=== PATIENT | female | born 1950 | race Caucasian/White ===

== ENCOUNTER 2022-02-25 08:42 | Outpatient (CLI) | payer MEDICARE, BC, SELFPAY ==
[2022-02-25 11:38] LABS: Vitamin D 25 Hydroxy* 51 ng/mL (30-80)
[2022-02-25 11:53] LABS: Albumin* 4.9 g/dL (3.3-5.0); Chloride* 104 mmol/L (96-114); Sodium* 140 mmol/L (135-149)
[2022-02-25 11:54] LABS: Potassium* 4.4 mmol/L (3.6-5.1)
[2022-02-25 11:56] LABS: Alanine Aminotransferase* 23 U/L (4-35); Alkaline Phosphatase* 84 U/L (40-150); Aspartate Amino Transferase* 28 U/L (12-35); Bilirubin Total* 0.4 mg/dL (0.1-1.5); Blood Urea Nitrogen* 22 mg/dL (7-30); Carbon Dioxide* 25 mmol/L (20-32); Cholesterol* 255 mg/dL (90-199); Creatinine* 0.7 mg/dL (0.5-1.5); Estimated Glomerular Filt Rate 93 ml/min; Glucose* 100 mg/dL (60-115); Total Protein* 7.6 g/dL (6.0-8.3); Triglycerides* 81 mg/dL (40-149)
[2022-02-25 11:57] LABS: Calcium* 9.4 mg/dL (8.4-10.6); HDL Cholesterol* 72 mg/dL (>=50); LDL Cholesterol Calculated 167 mg/dL (<100)
== END 2022-02-25 08:43 | disposition home or self-care (01) ==
PROVIDERS: PCP Family Medicine; Visit Provider Family Medicine
DX: Z00.00 Encounter for general adult medical examination without abnormal findings (principal); M81.0 Age-related osteoporosis without current pathological fracture; R53.83 Other fatigue; E78.5 Hyperlipidemia, unspecified; L40.9 Psoriasis, unspecified; Z13.6 Encounter for screening for cardiovascular disorders
CPT/HCPCS: 80053; 80061; 82306; 84443

== ENCOUNTER 2022-04-30 14:23 | Outpatient (CLI) | payer MEDICARE, BC, SELFPAY ==
--- NOTE | 2022-04-30 14:40 | CRLHL7_ITS ---
For Patients: As a result of the Century Cures Act, medical imaging exams and procedure reports are released immediately into your electronic medical record. You may view this report before your referring provider. If you have questions, please contact your health care provider. BILATERAL DIGITAL SCREENING MAMMOGRAM WITH COMPUTER-AIDED DETECTION WITH TOMOSYNTHESIS CLINICAL HISTORY: Routine screening exam. COMPARISON: 02/21/2021, 12/15/2019. TECHNIQUE: Digital mammogram in CC and MLO projections including computer-aided detection (CAD) and tomosynthesis. BREAST COMPOSITION: There are scattered areas of fibroglandular density. FINDINGS: RIGHT Breast: Focal asymmetric density within the lower-outer quadrant 2 cm from the nipple. LEFT Breast: No suspicious findings. IMPRESSION: RIGHT breast asymmetry/mass. RECOMMENDATIONS: Additional mammographic views of the RIGHT breast including 3D spot-compression CC/MLO. RIGHT breast ultrasound may also be required. The [facility] will contact the patient for follow-up. BI-RADS Category 0: Incomplete: Need Additional Imaging Evaluation and/or Prior Mammograms for Comparison Dictated by Josh Ramirez MD @ 05/01/2022 8:53:52 AM PT/Dictated by: Josh Ramirez MD @ 05/01/2022 8:54:00 AM (Electronically Signed)
== END 2022-04-30 14:24 | disposition home or self-care (01) ==
LOC: MAMMO 14:26
PROVIDERS: PCP Family Medicine; Visit Provider Family Medicine
DX: Z12.31 Encounter for screening mammogram for malignant neoplasm of breast (principal); N63.10 Unspecified lump in the right breast, unspecified quadrant
CPT/HCPCS: 77063; 77067

== ENCOUNTER 2022-05-04 10:36 | Outpatient (CLI) | payer MEDICARE, BC, SELFPAY ==
--- NOTE | 2022-05-04 10:45 | CRLHL7_ITS ---
For Patients: As a result of the Cures Act, medical imaging exams and procedure reports are released immediately into your electronic medical record. You may view this report before your referring provider. If you have questions, please contact your health care provider. RIGHT DIAGNOSTIC DIGITAL MAMMOGRAM WITH COMPUTER-AIDED DETECTION AND TOMOSYNTHESIS RIGHT BREAST ULTRASOUND CLINICAL HISTORY: RIGHT breast mass/asymmetry. COMPARISON: 04/30/2022, 02/21/2021, 12/15/2019, 11/04/2018. TECHNIQUE: Digital RIGHT mammogram in two projections with of computer-aided detection and tomosynthesis Real-time ultrasound imaging of RIGHT breast with imaging documentation. BREAST COMPOSITION: The breast is heterogeneously dense, which may obscure small masses. FINDINGS: 3D spot-compression CC/MLO RIGHT breast mammograms submitted. Decreased conspicuity of the previously noted asymmetric density. No underlying suspicious mass or architectural distortion. No adenopathy or suspicious calcifications. Targeted RIGHT breast ultrasound performed in the lower outer quadrant. At 7 o`clock 2 cm from the nipple, an island of normal dense tissue is present. Incidental subcutaneous lipoma at 7 o`clock 1 cm from the nipple. No evidence of malignancy. IMPRESSION: No evidence of malignancy. Negative additional RIGHT breast mammograms and negative targeted RIGHT breast ultrasound. RECOMMENDATIONS: Annual bilateral screening mammography. Results and recommendations discussed with the patient. A lay language report of this examination will be provided to the patient. BI-RADS Category 2. Benign Dictated by Josh Ramirez MD @ 05/04/2022 12:15:18 PM CRL:ilia RD/Dictated by: Josh Ramirez MD @ 05/04/2022 12:15:00 PM (Electronically Signed)
--- NOTE | 2022-05-04 11:15 | CRLHL7_ITS ---
For Patients: As a result of the Cures Act, medical imaging exams and procedure reports are released immediately into your electronic medical record. You may view this report before your referring provider. If you have questions, please contact your health care provider. PLEASE SEE RIGHT DIAGNOSTIC MAMMOGRAM OF SAME DAY FOR COMBINED REPORT. CRL:ilia RD/Dictated by: Josh Ramirez MD @ 05/04/2022 12:15:00 PM (Electronically Signed)
== END 2022-05-04 10:37 | disposition home or self-care (01) ==
LOC: MAMMO 10:37
PROVIDERS: PCP Family Medicine; Visit Provider Family Medicine
DX: N63.10 Unspecified lump in the right breast, unspecified quadrant (principal); R92.8 Other abnormal and inconclusive findings on diagnostic imaging of breast
CPT/HCPCS: 76642; 77065; G0279

== ENCOUNTER 2022-09-29 08:05 | Outpatient (CLI) | payer MEDICARE, BC, SELFPAY | END 2022-09-29 08:06 | disposition home or self-care (01) | LOC: NFLDREF 09-30 18:15 | PROVIDERS: PCP Family Medicine; Referring Provider Family Medicine; Visit Provider Family Medicine | DX: E78.5 Hyperlipidemia, unspecified (principal); Z79.899 Other long term (current) drug therapy | CPT/HCPCS: 80061; 80076; 82550 ==

== ENCOUNTER 2023-03-22 09:48 | Outpatient (CLI) | payer MEDICARE, BC, SELFPAY | END 2023-03-22 09:49 | disposition home or self-care (01) | LOC: NFLDREF 03-23 17:09 | PROVIDERS: PCP Family Medicine; Referring Provider Family Medicine; Visit Provider Family Medicine | DX: E78.5 Hyperlipidemia, unspecified (principal); M81.0 Age-related osteoporosis without current pathological fracture; Z13.9 Encounter for screening, unspecified | CPT/HCPCS: 80053; 80061; 82306 ==

== ENCOUNTER 2023-05-18 17:28 | Outpatient (CLI) | payer MEDICARE, BC, SELFPAY ==
--- NOTE | 2023-05-18 17:40 | CRLHL7_ITS ---
For Patients: As a result of the Century Cures Act, medical imaging exams and procedure reports are released immediately into your electronic medical record. You may view this report before your referring provider. If you have questions, please contact your health care provider. BILATERAL SCREENING MAMMOGRAM WITH COMPUTER-AIDED DETECTION AND TOMOSYNTHESIS TECHNIQUE: CC and MLO views were obtained. These mammographic images have been obtained using full-field digital technique. These mammographic images were interpreted with the benefit of computer-aided detection. Breast Tomosynthesis was used in this interpretation. COMPARISON FILM: 05/04/22, 04/30/22, 02/21/21. FINDINGS: The breasts are heterogeneously dense, which may obscure small masses IMPRESSION: There is no radiographic evidence for malignancy. ASSESSMENT: BI-RADS Category 1: Negative RECOMMENDATION: Routine screening mammogram in 1 year. A lay language report of this examination will be provided to the patient. Josh Ramirez M.D. Diagnostic Radiologist [email or web address] Transcribed: 6:42 p.zakiya devine/Dictated by: Josh Ramirez MD @ 05/19/2023 12:52:00 PM (Electronically Signed)
== END 2023-05-18 17:29 | disposition home or self-care (01) ==
LOC: MAMMO 17:29
PROVIDERS: PCP Family Medicine; Visit Provider Family Medicine
DX: Z12.31 Encounter for screening mammogram for malignant neoplasm of breast (principal); R92.2 Inconclusive mammogram
CPT/HCPCS: 77063; 77067

== ENCOUNTER 2023-06-17 14:37 | Outpatient (CLI) | payer MEDICARE, BC, SELFPAY ==
--- NOTE | 2023-06-17 14:30 | CRLHL7_ITS ---
For Patients: As a result of the Century Cures Act, medical imaging exams and procedure reports are released immediately into your electronic medical record. You may view this report before your referring provider. If you have questions, please contact your health care provider. DXA BONE MINERAL DENSITY STUDY Reason for exam: Osteoporosis. Current height (inches): 60.0 Weight (lbs.): 120.0 Menopause age: 52 Ethnicity: White 1. Have you had a previous hip or vertebral fracture? No. 2. Have you had any fractures during your adult life which did not result from significant trauma (e.g., auto accident)? No. 3. Did either of your parents have a hip fracture? No. 4. Do you smoke? No. 5. Have you ever taken Glucocorticoids? No. 6. Do you have rheumatoid arthritis? No. 7. Do you have secondary osteoporosis? No. 8. Do you drink 3 or more alcoholic drinks per day? No. 9. Are you being treated for osteoporosis? No. 10. Have you ever taken any of the following medications: Actonel, Evista, Fosamax, Miacalcin, Reclast, Boniva, Forteo, HRT (i.e., estrogen/hormone therapy), Protelos, Prolia, Vitamin D, Calcium, other ??? please specify. ANSWER: Yes; vitamin D, HRT, progesterone. 11. Do you have any of the following medical conditions: Anorexia or bulimia, asthma or emphysema, end stage renal disease, hyperparathyroidism, any seizure disorders, cancer, inflammatory bowel diseases, hysterectomy, other ??? please specify. ANSWER: No. 12. What was your maximum height (inches)? 59. 13. Do you perform weightbearing exercise regularly? Yes. 14. Do you regularly consume dairy products? Yes. 15. Do you drink caffeinated beverages? Yes. 16. At what age did your period start? 15. 17. Are you premenopausal? No. 18. How many full-term pregnancies have you had? 3. 19. Have you ever missed your period for more than 6 months in a row (not including or menopause)? No. TECHNIQUE: Bone mineral density study was performed using the [employer]. FINDINGS: The results of the study expressed as bone mineral density (BMD) are as follows: Lumbar Spine L1 to L4: BMD: 0.700 g/cm2. T-score: -3.2. Z-score: -1.0. Neck Left: BMD: 0.605 g/cm2. T-score: -2.2. Z-score: -0.3. Right: BMD: 0.621 g/cm2. T-score: -2.1. Z-score: -0.2. Total Left: BMD: 0.822 g/cm2. T-score: -1.0. Z-score: 0.6. Right: BMD: 0.831 g/cm2. T-score: -0.9. Z-score: 0.7. IMPRESSION: Osteoporosis. COMPARISON: Compared with scan of 02/19/2021, the bone mineral density has decreased by 7.3% at the spine and increased by 7.1% at the hip. Compared with scan of 09/19/2018, the bone mineral density has decreased by 0.8% at the spine and increased by 1.0% at the hip. *Comparison exams done prior to 11/2019 were performed on different unit, [employer]. JOSH JORGENSEN M.D. Diagnostic Radiologist [email or web address] Transcribed: 6:[address]/Dictated by: Josh Jorgensen MD @ 06/17/2023 3:40:00 PM (Electronically Signed)
== END 2023-06-17 14:38 | disposition home or self-care (01) ==
LOC: RAD 14:38
PROVIDERS: PCP Family Medicine; Visit Provider Family Medicine
DX: M81.0 Age-related osteoporosis without current pathological fracture (principal)
CPT/HCPCS: 77080

== ENCOUNTER 2024-04-17 07:38 | Outpatient (CLI) | payer MEDICARE, BC, SELFPAY ==
--- OUTSIDE RECORDS SUMMARY | 2024-04-20 06:46 | XMS_ITS | Clinical Summary ---
Author Organization [facility] Address [address] [place] [address] Care Team Providers Care Vp Publisher Development Name Role Phone Unavailable Primary Care Provider Unavailabl e Source Comments Patient records contain information from all sites at [facility]. For routine questions regarding patient records, call [phone] during business hours, M-F 8:00 AM - 5:00 PM Central Time. Record requests for emergency care only can be directed to [phone] at any time.[facility] Allergies Active Allergy Reactions Criticality Noted Date Comments Prochlorperazine Hives (Reselect Reaction) 05/14 Medications cholecalciferol , vitamin D3, 25 mcg (1,000 Unit) tablet Take by mouth daily. 9 Active estradioL (VIVELLE-DOT) 0.025 mg/[address] on the skin 2 (two) times a week. 9 Active finasteride (PROSCAR) 5 mg tablet Take 2.5 mg by mouth daily. 2 Active minoxidiL 5 % solution Apply topically daily. 0 Active niacinamide 500 mg tablet Take 1,000 mg by mouth daily. 0 Active progesterone (PROMETRIUM) 100 mg capsule Take 100 mg by mouth every morning. 3 Active rosuvastatin (CRESTOR) 5 mg tablet Take 5 mg by mouth daily. 3 Active tretinoin (RETIN-A) 0.025 % cream Apply topically at bedtime. 0 Active valACYclovir (VALTREX) 1000 mg tablet as needed. 2 Active multivitamin capsule Take 1 capsule by mouth daily. Active UNABLE TO FIND Med Name: Tumeric daily. Active propranoloL (INDERAL LA) 60 mg 24 hr capsule Take 1 capsule (60 mg total) by mouth daily. 30 capsule 11 3 Active Active Problems Problem Noted Date Diagnosed Date Tremor Essential 07/22/2022 Immunizations Name Administration Dates Next Due Influenza, Unspecified 05/05/2005,05/06/2002 Social History Tobacco Use Types Packs/Day Years Used Date Smoking Tobacco: Never Passive Smoke Exposure: Never Smokeless Tobacco: Never Tobacco Cessation:Counseling Given: Not Answered Nutrition Answer Date Recorded Nutrition: EVOO Fat Source Unknown 07/08 Nutrition: Servings of Fruits/Vegetables per Day Not on file 07/08/2022 Dental Answer Date Recorded Dental: Regular Dentist Unknown 07/08/19 Comments Unknown Sex and Gender Information Value Date Recorded Sex Assigned at Not on file Legal Sex Female 9:24 AM 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 SOFTWARE CONSULTANT Gender Identity Not on file Sexual Orientation Not on file Last Filed Vital Signs Vital Sign Reading Time Taken Comments Blood Pressure 139/83 07/22/2022 9:30 AM DATABASES SOFTWARE CONSULTANT Pulse 84 07/22/2022 9:30 AM DATABASES SOFTWARE CONSULTANT Temperature - - Respiratory Rate - - Oxygen Saturation - - Inhaled Oxygen Concentration - - Weight 58 kg (127 lb 13.9 oz) 07/22/2022 9:16 AM DATABASES SOFTWARE CONSULTANT Height 154 cm (5' 0.63) 07/22/2022 9:16 AM DATABASES SOFTWARE CONSULTANT Body Mass Index 24.46 07/22/2022 9:16 AM DATABASES SOFTWARE CONSULTANT Plan of Treatment Health Maintenance Due Date Last Done Comments Bone Density Scan (Osteoporosis Screen) 1950 CT Colonography 1950 Cologuard 1950 Colonoscopy 1950 Colorectal Cancer Screening 1950 FIT 1950 Fasting Glucose for Diabetes Screening 1950 Hepatitis C Screening 1950 Mammogram 1950 Zoster Vaccines (1 of 2) 01/04/2002 Depression Screening (Annual PHQ-2) 06/14/2023 Fall Risk Screen (Annual) 06/14/2023 COVID-19 Vaccine ( season) 2024 06/22/2023, 01/18/2023, 04/11/2022, Additional history exists Influenza Vaccine (#1) 2024 , 04/11/2022, 03/27/2021, Additional history exists DTaP,Tdap,and Td Vaccines (3 - Td or Tdap) 02/06/2031 02/06/2021, 03/19/2009, 11/26/2008 Pneumococcal vaccine (65+ years) Completed 09/08/2018, 11/09/2017 IPV Vaccines Aged Out No longer eligi ble based on patient's age to complete this topic Insurance MEDICARE [facility]
--- OUTSIDE RECORDS SUMMARY | 2024-04-20 06:46 | XMS_ITS ---
Author Organization [facility] Address [address] [place] [address] Care Team Providers Care Automobile Insurance Claim Examiner Name Role Phone Unavailable Unavailable Unavailable Surgery Details Not on file Complications Check Surgery Details section. Procedure Estimated Blood Loss Check Surgery Details section. Procedure Findings Check Surgery Details section. Procedure Specimens Taken Check Surgery Details section.
--- OUTSIDE RECORDS SUMMARY | 2024-04-20 06:46 | XMS_ITS | Referral Summary ---
Author Organization [facility] Address [address] [place] [address] Care Team Providers Care Auto [place] Driver Name Role Phone Unavailable Primary Care Provider Unavailabl e Source Comments Patient records contain information from all sites at [facility]. For routine questions regarding patient records, call [phone] during business hours, M-F 8:00 AM - 5:00 PM Central Time. 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
--- OUTSIDE RECORDS SUMMARY | 2024-04-20 06:47 | XMS_ITS | Clinical Summary ---
Author Organization [employer] [facility] Address [place], [place] [address] Care Team Providers Care Oracle Pl Sql Developer Name Role Phone Jennifer Grace MD Primary Care Provider + Allergies Active Allergy Reactions Criticality Noted Date Comments Prochlorperazine Hives 05/25/2008 Medications Medication Sig Dispensed Refills Start Date End Date Status CALCIUM CARBONATE 1,000 MG TAB .qd 0 0 04/19/2009 Active MAGNESIUM 500 MG TAB Once daily 0 0 04/19/2009 Active VITAMIN D 1,000 UNIT TAB Once daily 0 0 04/19/2009 Active VIVELLE-DOT 0.025 MG/24 HR TRANSDERM PATCH apply 1 patch by transdermal route twice weekly cyclically 26 3 04/19/2009 Active PROMETRIUM 100 MG CAP Take 1 capsule (100 mg) orally once daily in the evening. 90 3 04/19/2009 Active betamethasone dipropionate 0.05% (DIPROSONE 0.05% OINTMENT) 0.05 % ointment 01/04/2019 Active finasteride (PROSCAR) 5 mg tablet Take 2.5 mg by mouth once daily. 10/24/2019 Active niacinamide 500 mg tablet Take 1,000 mg by mouth once daily. 12/22/2019 Active timoloL maleate (TIMOPTIC) 0.25 % ophthalmic solution APPLY 1 DROP TOPICALLY TWICE DAILY 12/21/2019 Active Minoxidil 5 % topical solution Apply topically to affected area(s). 1 Bottle 12/27/2019 Active tretinoin (RETIN-A) 0.025 % 0.025 % cream Apply topically to affected area(s) at bedtime. 45 g 12/27/2019 Active valACYclovir (VALTREX) 500 mg tablet Take 1 tablet by mouth 2 times daily. As needed 0 12/27/2019 Active polyethylene glycol-electrolyte (GOLYTELY) 236-22.74-6.74 -5.86 gram suspensionIndication s:Encounter for screening colonoscopy Drink 2 liters (half the bottle) the day before colonoscopy and 2 liters (remaining prep) 6 hours prior to colonoscopy appointment. 4000 mL 07/07/2023 Active rosuvastatin (Crestor) 5 mg tablet Take by mouth at bedtime. Active Active Problems Problem Noted Date Diagnosed Date Colon polyp 08/26/2023 Overview (08/26/2023): Colonoscopy 08/2023 TA, repeat in 7 years Special screening for malignant neoplasms, colon 05/09/2013 Overview (05/20/2018): Colonoscopy 04/2013 hyperplastic polyp repeat in 5 years Colonoscopy 05/2018 diverticulosis, repeat in 5 years Elevated liver function tests 04/19/2009 Osteoporosis Immunizations Name Administration Dates Next Due Hepatitis B (Adult) 04/09/1993 Td (Age >=7 Years) 03/03/2002,05/29/1992 Tdap 03/19/2009 Family History Medical History Relation Name Comments Cancer Father pancreatic Diabetes Mother Other Mother unexplained cir rhosis in her 70s. Cancer-breast Paternal Grandmother well p ast menopause Relation Name Status Comments Father Mother Paternal Grandmother Social History Tobacco Use Types Packs/Day Years Used Date Smoking Tobacco: Never Alcohol Use Standard Drinks/Week Comments Yes 0 (1 standard drink = 0.6 oz pur e alcohol) rare Sex and Gender Information Value Date Recorded Sex Assigned at Not on file Gender Identity Not on file Sexual Orientation Not on file Obstetrics History Last Filed Vital Signs Vital Sign Reading Time Taken Comments Blood Pressure 111/55 08/24/2023 12:28 PM CDT Pulse 64 08/24/2023 12:28 PM CDT Temperature 36.9 ??C (98.4 ??F) 04/19/2009 2:03 PM CS T Respiratory Rate 16 08/24/2023 12:28 PM CDT Oxygen Saturation 96% 08/24/2023 12:28 PM CDT Inhaled Oxygen Concentration - - Weight 54.3 kg (119 lb 9.6 oz) 04/19/2009 2:03 P M AREA ATTENDANT Height 152.5 cm (5' 0.04) 04/19/2009 2:03 PM CS T Body Mass Index 23.33 04/19/2009 2:03 PM AREA ATTENDANT Plan of Treatment Health Maintenance Due Date Last Done Comments Depression screening for age 12+ 1964 BMI (ht and wt on same day) for age 18+ 01/04/1970 Lipids for age 45-75 01/04/1997 Zoster (shingles) series for age 50+ (1 of 2) 01/04/2002 Mammogram for age 45-75 04/21/2011 04/21/20 10, 04/15/2009, 04/15/2009, Additional history exists DEXA/DXA scan for age 65+ 01/04/20172009, 05/12/2010, 11/16/2007, Additional history exists Medicare Wellness for age 65+ 01/04/2017 Pneumococcal series for age 65+ (1 of 1 - PCV) 01/04/2017 Tetanus booster 03/19/2019 03/19/2009, 02/13, 05/29/1992 COVID-19 vaccine series (2023-25 season) 2024 06/22/2023, 01/18/2023, 09/03/2021, Additional history exists Influenza for age 65+ 02/13/2024 Colonoscopy through age 75 08/23/203008/23, 08/24/2023, 08/24/2023, Additional history exists Tdap Completed 03/19/2009 Hepatitis C screening for ag e 18-79 Completed 04/19/2009 Procedures Procedure Name Priority Date/Time Associated Diagnosis Comments COLONOSCOPY SCREENING Routine 08/24/2023 10:21 AM CDT History of colon polyps SCAN-BONE DENSITOMETRY DEXA 05/12/2010 12:00 AM AREA ATTENDANT SCAN-MAMMOGRAPHY REPORT 04/21/2010 12:00 AM AREA ATTENDANT ANTI HCV Routine 04/19/2009 3:36 PM AREA ATTENDANT Elevated Liver Function Tests from Last 3 Months or Most Recently Relevant to Health Maintenance Results * COLONOSCOPY (08/24/2023 11:13 AM CDT) 08/24/2023 11:1 3 AM CDT Narrative Transcriptions Romain Napier MD - 08/24/2023 12:13 PM CDT Patient Name: Erica Hidalgo Procedure Date: 08/24/2023 Gender: Female Date of : 1950 Admit Type: Outpatient Procedure: Colonoscopy Proceduralist: Romain Napier MD , April Perez (Nurse), Mindy Prajapati (Nurse) Referring MD: Jennifer Grace Indications/Pre-Op Diagnosis: High risk colon cancer surveillance:Personal history of colonic polyps, Last colonoscopy: May 2018 Medications: Fentanyl 100 micrograms IV, Midazolam 2 mgIV, The level of sedation administered wasmoderate Procedure Description: The patient had risks, benefits and alternatives explained to andgave informed consent. The patient had a stable cardiopulmonary status and judged an adequate candidate for conscious sedation. The endoscope PCF-H190L [id number] was passed through the anus andadvanced to the cecum, identified by appendiceal orifice and ileocecal valve.The colonoscopy was performed without difficulty. The patient toleratedthe procedure well. The quality of the bowel preparation was good. The ileocecal valve, appendiceal orifice, and rectum were photographed. Complications: No immediate complications. Estimated Blood Loss & Specimen: Estimated blood loss: none. Specimen collected - Yes and sent to Laboratory Findings: The perianal and digital rectal examinations were normal. A 3 mm polyp was found in the ascending colon. The polyp was sessile. The polyp was removed with a cold snare. Resection and retrieval were complete. A few small-mouthed diverticula were found in the sigmoid colon. The exam was otherwise without abnormality on direct and retroflexion views. Impressions/Post-Op Diagnosis: - One 3 mm polyp in the ascending colon, removed with a cold snare. Resected and retrieved. - Diverticulosis in the sigmoid colon. - The examination was otherwise normal on direct and retroflexionviews. Recommendation: - Patient has a contact number available for emergencies. The signsand symptoms of potential delayed complications were discussed with the patient. Return to normal activities tomorrow. Written discharge instructions were provided to the patient. - Resume previous diet. - Continue present medications. - Await pathology results. - Repeat colonoscopy is recommended. The colonoscopy date will be determined after pathology results from today's exam become available for review. Moderate Sedation: A time out was performed before the procedure. Moderate (conscious) sedation was administered by the endoscopy nurse and supervised bythe endoscopist. The following parameters were monitored: oxygensaturation, heart rate, blood pressure, EKG, CO2, respiratory rate, adequacy of pulmonary ventilation and reponse to care. Please refer to the patient's medical record flowsheets and nursing notes for moderate sedation details. Total physician intraservice time was 13 minutes. Romain Napier MD 08/24/2023 12:13:32 PM This report has been signed electronically. Note Initiated On: 08/24/2023 11:13 AM Procedure Code(s): --- Professional --- 51806, Colonoscopy, flexible; with removalof tumor(s), polyp(s), or other lesion(s) bysnare technique Diagnosis Code(s): --- Professional --- Z86.010, Personal history of colonicpolyps D12.2, Benign neoplasm of ascending colon K57.30, Diverticulosis of large intestine without perforation or abscess withoutbleeding CPT copyright 2021 [employer]. All rights reserved. The codes documented in this report are preliminary and upon data coder operator reviewmay be revised to meet current compliance requirements. Scope In: 11:59:17 AM Scope Withdrawal Time 0 hours 7 minutes 27 seconds Scope Out: 12:10:16 PM Romain Npaier MD PROCEDURE ORD * SCAN-BONE DENSITOMETRY DEXA (05/12/2010 12:00 AM AREA ATTENDANT) Anatomical Region Laterality Modality Other Narrative Procedure Note Scanner - 05/12/2010 12:00 AM AREA ATTENDANT Scanner OTHER * SCAN-MAMMOGRAPHY REPORT (04/21/2010 12:00 AM AREA ATTENDANT) Anatomical Region Laterality Modality Other Narrative Procedure Note Scanner - 04/21/2010 12:00 AM AREA ATTENDANT Scanner OTHER * Hep C Ab (04/19/2009 3:36 PM AREA ATTENDANT) ANTI HCV Non-reacti ve [facility] Blood specimen (specimen) BLOOD SPECIMEN / Unknown 04/19/2009 3:36 PM AREA ATTENDANT 04/19/2009 3:26 PM AREA ATTENDANT Damian Moore MD SEND OUTS [facility] [place]NAL ZIP [id number] [place] [id number] from Last 3 Months or Most Recently Relevant to Health Maintenance Care Teams Oracle Pl Sql Developer Relationship Specialty Start Date End Date Jennifer Grace MD [address] [place] [address] PCP - General Family Practice 05/22/22
== END 2024-04-17 07:39 | disposition home or self-care (01) ==
LOC: NFLDREF 04-20 06:45
PROVIDERS: PCP Family Medicine; Referring Provider Family Medicine; Visit Provider Family Medicine
DX: E78.5 Hyperlipidemia, unspecified (principal); M81.0 Age-related osteoporosis without current pathological fracture; R53.83 Other fatigue; Z79.890 Hormone replacement therapy
CPT/HCPCS: 80053; 80061; 82306

== ENCOUNTER 2024-05-01 11:41 | Outpatient (CLI) | payer MEDICARE, BC, SELFPAY ==
--- OUTSIDE RECORDS SUMMARY | 2024-05-01 11:44 | XMS_ITS | Clinical Summary ---
Author Organization [facility] Address [place], [place] [address] Care Team Providers Care Director Of Managed Services Name Role Phone Jennifer Grace MD Primary [...] 66 08/24/2023 12:28 PM CDT Temperature 36.9 C (98.4 F) 04/19/2009 2:03 PM GENERATING STATION MECHANIC Respiratory Rate 16 08/24/2023 12:28 PM CDT Oxygen Saturation 96% 08/24/2023 12:28 PM CDT Inhaled Oxygen Concentration - - Weight 54.3 kg (119 lb 9.6 oz) 04/19/2009 2:03 P M GENERATING STATION MECHANIC Height 152.5 cm (5' 0.04) 04/19/2009 2:03 PM CS T Body Mass Index 23.33 04/19/2009 2:03 PM GENERATING STATION MECHANIC Plan of Treatment Health Maintenance Due Date Last Done Comments Depression screening for age 12+ 1964 BMI (ht and wt on same day) for age 18+ 01/04/1970 Lipids for age 45-75 01/04/1997 Zoster (shingles) series for age 50+ (1 of 2) 01/04/2002 Mammogram for age 45-75 04/21/2011 04/21/20, 04/15/2009, 04/15/2009, Additional history exists DEXA/DXA scan for age 65+ 01/04/20172009, 05/12/2010, 11/16/2007, Additional history exists Medicare Wellness for age 65+ 01/04/2017 Pneumococcal series for age 65+ (1 of 1 - PCV) 01/04/2017 Tetanus booster 03/19/2019 03/19/2009, 02/13, 05/29/1992 COVID-19 vaccine series (2023- season) 2024 06/22/2023, 01/18/2023, 09/03/2021, Additional history exists Influenza for age 65+ 02/13/2024 Colonoscopy through age 75 08/23/203008/23, 08/24/2023, 08/24/2023, Additional history exists Tdap Completed 03/19/2009 Hepatitis C screening for ag e 18-79 Completed 04/19/2009 Procedures Procedure Name Priority Date/Time Associated Diagnosis Comments COLONOSCOPY SCREENING Routine 08/24/2023 10:21 AM CDT History of colon polyps SCAN-BONE DENSITOMETRY DEXA 05/12/2010 12:00 AM GENERATING STATION MECHANIC SCAN-MAMMOGRAPHY REPORT 04/21/2010 12:00 AM GENERATING STATION MECHANIC ANTI HCV Routine 04/19/2009 3:36 PM GENERATING STATION MECHANIC Elevated Liver Function Tests from Last 3 [...] candidate for conscious sedation. The endoscope [id number] was passed through the anus andadvanced to [...] 11:13 AM Procedure Code(s): --- Professional --- 51164, Colonoscopy, flexible; with removalof tumor(s), polyp(s), or other lesion(s) bysnare technique Diagnosis Code(s): --- Professional --- Z86.010, Personal history of colonicpolyps D12.2, Benign neoplasm of ascending colon K57.30, Diverticulosis of large intestine without perforation or abscess withoutbleeding CPT copyright 2021 [employer]. All rights reserved. The codes documented in this report are preliminary and upon custom tailor apprentice reviewmay be revised to meet current compliance requirements. Scope In: 11:59:17 AM Scope Withdrawal Time 0 hours 7 minutes 27 seconds Scope Out: 12:10:16 PM Romain Napier MD PROCEDURE ORD * SCAN-BONE DENSITOMETRY DEXA (05/12/2010 12:00 AM GENERATING STATION MECHANIC) Anatomical Region Laterality Modality Other Narrative Procedure Note Scanner - 05/12/2010 12:00 AM GENERATING STATION MECHANIC Scanner OTHER * SCAN-MAMMOGRAPHY REPORT (04/21/2010 12:00 AM GENERATING STATION MECHANIC) Anatomical Region Laterality Modality Other Narrative Procedure Note Scanner - 04/21/2010 12:00 AM GENERATING STATION MECHANIC Scanner OTHER * Hep C Ab (04/19/2009 3:36 PM GENERATING STATION MECHANIC) ANTI HCV Non-reacti ve [facility] Blood specimen (specimen) BLOOD SPECIMEN / Unknown 04/19/2009 3:36 PM GENERATING STATION MECHANIC 04/19/2009 3:26 PM GENERATING STATION MECHANIC Damian Moore MD SEND OUTS [facility] INTERNAL ZIP [address] [place] [id number] from Last 3 Months or Most Recently Relevant to Health Maintenance Care Teams Director Of Managed Services Relationship Specialty Start Date End Date Jennifer Grace MD [address] [place] [address] PCP - General Family Practice 05/22/22
--- OUTSIDE RECORDS SUMMARY | 2024-05-01 11:44 | XMS_ITS ---
Author Organization [facility] Address [address] [place] [address] Care Team Providers Care Pillow Filler Name Role Phone Unavailable Unavailable Unavailable Surgery Details Not on file Complications Check Surgery Details section. Procedure Estimated Blood Loss Check Surgery Details section. Procedure Findings Check Surgery Details section. Procedure Specimens Taken Check Surgery Details section.
--- OUTSIDE RECORDS SUMMARY | 2024-05-01 11:44 | XMS_ITS | Clinical Summary ---
Author Organization [facility] Address [address] [place] [address] Care Team Providers Care Corporate Relations Manager Name Role Phone Unavailable Primary Care Provider Unavailabl e Source Comments Patient records contain information from all sites at [facility]. For routine questions regarding patient records, call [phone] during business hours, M-F 8:00 AM - 5:00 PM Central Time. 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 Gender Identity Not on file Sexual Orientation Not on file Last Filed Vital Signs Vital Sign Reading Time Taken Comments Blood Pressure 139/83 07/22/2022 9:30 AM DEMONSTRATOR SALES Pulse 84 07/22/2022 9:30 AM DEMONSTRATOR SALES Temperature - - Respiratory Rate - - Oxygen Saturation - - Inhaled Oxygen Concentration - - Weight 58 kg (127 lb 13.9 oz) 07/22/2022 9:16 AM DEMONSTRATOR SALES Height 154 cm (5' 0.63) 07/22/2022 9:16 AM DEMONSTRATOR SALES Body Mass Index 24.46 07/22/2022 9:16 AM DEMONSTRATOR SALES Plan of Treatment Health Maintenance Due Date [...] age to complete this topic Insurance MEDICARE [facility]
--- OUTSIDE RECORDS SUMMARY | 2024-05-01 11:44 | XMS_ITS | Referral Summary ---
Author Organization [facility] Address [address] [place] [address] Care Team Providers Care Farm Equipment Maintenance Supervisor Name Role Phone Unavailable Primary Care Provider Unavailabl e Source Comments Patient records contain information from all sites at [facility]. For routine questions regarding patient records, call [phone] during business hours, M-F 8:00 AM - 5:00 PM Central Time. 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
--- NOTE | 2024-05-01 12:34 | P.ANES_ITS ---
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
--- NOTE | 2024-05-01 13:05 | W.ANESCHARGE ---
Anesthesia Charges Start Date/Time Anesthesia Start Date: 05/01/24 Anesthesia Start Time: 12:53 Stop Date/Time Anesthesia Stop Date: 05/01/24 Anesthesia Stop Time: 13:18 Summary Extremes of Age - Over 70 or under 1: MDA
--- NOTE | 2024-05-01 15:06 | W.ANESCHARGE ---
Anesthesia Charges Start Date/Time Anesthesia Start Date: 05/01/24 Anesthesia Start Time: 12:53 Stop Date/Time Anesthesia Stop Date: 05/01/24 Anesthesia Stop Time: 13:18
== END 2024-05-01 11:42 | disposition home or self-care (01) ==
LOC: OP CLINIC 11:43
PROVIDERS: PCP Family Medicine; Visit Provider Surgery
DX: K21.9 Gastro-esophageal reflux disease without esophagitis (principal); K44.9 Diaphragmatic hernia without obstruction or gangrene; K31.89 Other diseases of stomach and duodenum
CPT/HCPCS: 00731; 43239; 88305; 99100; J2704

== ENCOUNTER 2024-05-25 11:12 | Outpatient (CLI) | payer MEDICARE, BC, SELFPAY ==
--- NOTE | 2024-05-25 11:30 | CRLHL7_ITS ---
For Patients: As a result of the Century Cures Act, medical imaging exams and procedure reports are released immediately into your electronic medical record. You may view this report before your referring provider. If you have questions, please contact your health care provider. BILATERAL SCREENING MAMMOGRAM WITH COMPUTER-AIDED DETECTION AND TOMOSYNTHESIS TECHNIQUE: CC and MLO views were obtained. These mammographic images have been obtained using full-field digital technique. These mammographic images were interpreted with the benefit of computer-aided detection. Breast Tomosynthesis was used in this interpretation. COMPARISON FILM: 05/18/23, 04/20/22, 02/21/21. FINDINGS: There are scattered areas of fibroglandular density. IMPRESSION: There is no radiographic evidence for malignancy. ASSESSMENT: BI-RADS Category 1: Negative RECOMMENDATION: Routine screening mammogram in 1 year. A lay language report of this examination will be provided to the patient. Josh Ramirez M.D. Diagnostic Radiologist [email or web address] SP/Dictated by: Josh Ramirez MD @ 05/25/2024 12:25:00 PM (Electronically Signed)
== END 2024-05-25 11:13 | disposition home or self-care (01) ==
LOC: MAMMO 11:13
PROVIDERS: PCP Family Medicine; Visit Provider Family Medicine
DX: Z12.31 Encounter for screening mammogram for malignant neoplasm of breast (principal)
CPT/HCPCS: 77063; 77067

== ENCOUNTER 2025-04-27 10:10 | Outpatient (CLI) | payer MEDICARE, BC, SELFPAY | END 2025-04-27 10:11 | disposition home or self-care (01) | LOC: NFLDREF 05-02 18:28 | PROVIDERS: PCP Family Medicine; Referring Provider Family Medicine; Visit Provider Family Medicine | DX: E78.5 Hyperlipidemia, unspecified (principal); M81.0 Age-related osteoporosis without current pathological fracture; R53.83 Other fatigue | CPT/HCPCS: 80053; 80061; 82306 ==

== ENCOUNTER 2025-05-29 17:15 | Outpatient (CLI) | payer MEDICARE, BC, SELFPAY ==
--- NOTE | 2025-05-29 17:20 | CRLHL7_ITS ---
For Patients: As a result of the Century Cures Act, medical imaging exams and procedure reports are released immediately into your electronic medical record. You may view this report before your referring provider. If you have questions, please contact your health care provider. INDICATION: BILATERAL SCREENING MAMMOGRAM, ASYMPTOMATIC 75 Y/O FEMALE COMPARISON: 05/25/2024, 05/18/2023, 05/04/2022 TECHNIQUE: Digital mammogram in CC and MLO projections including computer-aided detection (CAD) and tomosynthesis. BREAST COMPOSITION: The breasts are heterogeneously dense, which may obscure small masses. FINDINGS: No suspicious findings. ASSESSMENT: BI-RADS 1 Negative RECOMMENDATION: Annual screening mammogram. A lay language report of this examination will be provided to the patient. Dictated by: Josh Ramriez MD @ 05/30/2025 10:56:57 (Electronically Signed)
== END 2025-05-29 17:16 | disposition home or self-care (01) ==
LOC: MAMMO 17:15
PROVIDERS: PCP Family Medicine; Visit Provider Family Medicine
DX: Z12.31 Encounter for screening mammogram for malignant neoplasm of breast (principal); R92.333 Mammographic heterogeneous density, bilateral breasts
CPT/HCPCS: 77063; 77067